=== PATIENT | female | born 1960 | race Caucasian/White ===

== ENCOUNTER 2019-08-05 05:50 | Inpatient (IN) | payer BC ==
[~2019-08-05] VITALS: Ht 160 cm; Wt 77.1 kg
[2019-08-05] MEDS ORDERED: ALVIMOPAN 12 MG CAPSULE PO ONE ×2 (06:34→07:00)
[2019-08-05] MEDS ORDERED: TOPXL100 PO (06:41)
[2019-08-05] MEDS ORDERED: NOR10 PO (06:41)
[2019-08-05] MEDS ORDERED: cefOXitin 2 GM IVPB PREMIX 50 ML IV ONE (07:00)
[2019-08-05] MEDS ORDERED: METOCLOPRAMIDE HCL 10 MG/2 ML VIAL IVP ONE (07:10)
[2019-08-05] MEDS ORDERED: DEXAMETHASONE SOD PHOSPHATE 4 MG/ML VIAL IVP ONE (07:10)
[2019-08-05] MEDS ORDERED: LR 1,000 ML IV.SOLN IV ONE (07:10)
[2019-08-05] MEDS ORDERED: ATROPINE SULFATE 0.4 MG/ML VIAL IVP ONE (07:10)
[2019-08-05] MEDS ORDERED: fentaNYL CITRATE/PF 100 MCG/2 ML AMP IVP ONE (07:10)
[2019-08-05] MEDS ORDERED: fentaNYL CITRATE 250 MCG/5 ML AMP IV ONE (07:10)
[2019-08-05] MEDS ORDERED: GLUCAGON,HUMAN RECOMBINANT 1 MG VIAL IV ONE (07:10)
[2019-08-05] MEDS ORDERED: KETOROLAC TROMETHAMINE 30 MG VIAL IVP ONE (07:10)
[2019-08-05] MEDS ORDERED: PROPOFOL 200MG/ 20ML VIAL (DIPRIVAN) IV ONE (07:10)
[2019-08-05] MEDS ORDERED: NS 1000 ML IV.SOLN IV ONE (07:10)
[2019-08-05] MEDS ORDERED: ONDANSETRON HCL 4 MG/2 ML VIAL IVP ONE (07:10)
[2019-08-05] MEDS ORDERED: ROCURONIUM BROMIDE 10 MG/ML (ZEMURON) IV ONE (07:10)
[2019-08-05] MEDS ORDERED: SEVOFLURANE 15 MIN GAS INH ONE (07:10)
[2019-08-05] MEDS ORDERED: MIDAZOLAM HCL 5 MG/5 ML VIAL IVP ONE (07:10)
[2019-08-05] MEDS ORDERED: LR 1,000 ML IV SCH (08:33)
[2019-08-05] MEDS ORDERED: MEPERIDINE HCL/PF 25 MG/ML DISP.SYRIN IVP PRN (08:45)
[2019-08-05] MEDS ORDERED: HYDROmorphone 2 MG/ML VIAL IVP PRN ×2 (08:45)
[2019-08-05] MEDS ORDERED: HYDROmorphone 1 MG INJ. 1 MG/ML AMPUL IVP PRN ×2 (08:45→11:45)
[2019-08-05] MEDS ORDERED: BUPIVACAINE LIPOSOME/PF 266 MG/20 ML VIAL INFIL ONE (10:10)
[2019-08-05 11:06] LABS: HEMATOCRIT 36.6 % (36-48); HEMOGLOBIN 12.2 g/dL (12.0-16.0)
[2019-08-05] MEDS ORDERED: HYDROmorphone 1 MG INJ. 1 MG/ML AMPUL ONE ×2 (11:21→11:54)
[2019-08-05 11:23] LABS: CALCIUM 8.2 mg/dL (8.4-11.0); CREATININE 0.66 mg/dL (0.55-1.30); POTASSIUM 3.2 mmol/L (3.5-5.1)
[2019-08-05] MEDS ORDERED: ONDANSETRON HCL 4 MG/2 ML VIAL IVP PRN (11:45)
[2019-08-05] MEDS ORDERED: HYDROcodone/ACETAMIN 5-325 MG TAB (NORCO/ VICODIN) PO PRN ×2 (11:45)
[2019-08-05] MEDS ORDERED: ACETAMINOPHEN 325 MG TABLET PO PRN (11:45)
[2019-08-05 12:00] VITALS: BP_SYST 117
[2019-08-05 15:10] VITALS: BP_SYST 117
[2019-08-05] MEDS: D5/0.45 NS 1,000 ML IV SCH ×2 (16:19→21:45)
[2019-08-05 16:29] VITALS: BP_SYST 126
[2019-08-05 20:00] VITALS: BP_SYST 133
[2019-08-05 20:16] VITALS: BP_SYST 133
[2019-08-05] MEDS: FAMOTIDINE PF 20 MG/2 ML VIAL IVP SCH (21:05)
[2019-08-05] MEDS: cefOXitin SODIUM 2 GM in D5W 100 ML IV SCH (21:05)
[2019-08-05] MEDS: ALVIMOPAN 12 MG CAPSULE PO SCH (21:05)
[2019-08-06 00:28] VITALS: BP_SYST 126
[2019-08-06] MEDS: D5/0.45 NS 1,000 ML IV SCH (02:18)
[2019-08-06 07:36] LABS: HEMATOCRIT 34.3 % (36-48); HEMOGLOBIN 11.6 g/dL (12.0-16.0); LYMPHOCYTES # (AUTO) 1.5 K/uL (1.0-5.5); LYMPHOCYTES % (AUTO) 11.3 % (20.5-51.5); MEAN CORPUSCULAR HEMOGLOBIN 30 pg (27-31); MEAN CORPUSCULAR HGB CONC 34 % (32-36); MEAN CORPUSCULAR VOLUME 89 fL (79.0-98.0); MONOCYTES # (AUTO) 1.2 K/uL (0.0-1.0); MONOCYTES % (AUTO) 9.3 % (1.7-9.3); NEUTROPHILS # (AUTO) 10.5 K/uL (1.8-7.7); NEUTROPHILS % (AUTO) 79.4 % (40.0-70.0); PLATELET COUNT (AUTO) 268 K/uL (130-430); RED BLOOD CELL COUNT(AUTO) 3.86 MIL/uL (4.2-6.2); WHITE BLOOD COUNT (AUTO) 13.2 K/uL (4.8-10.8)
[2019-08-06 08:07] LABS: ALBUMIN 3.5 g/dL (3.4-4.8); CALCIUM 8.9 mg/dL (8.4-11.0); CREATININE 0.54 mg/dL (0.55-1.30); POTASSIUM 3.5 mmol/L (3.5-5.1); TOTAL BILIRUBIN 0.4 mg/dL (0.0-1.0)
[2019-08-06 08:30] VITALS: BP_SYST 140
[2019-08-06] MEDS: FAMOTIDINE PF 20 MG/2 ML VIAL IVP SCH ×2 (09:00→21:28)
[2019-08-06] MEDS: ENOXAPARIN SODIUM 30 MG/0.3 ML SYRINGE SUBCUT SCH (09:02)
[2019-08-06] MEDS ORDERED: amLODIPine BESYLATE 10 MG TABLET PO ONE (09:45)
[2019-08-06] MEDS ORDERED: METOPROLOL SUCCINATE 50 MG TAB.SR.24H (TOPROL XL) PO ONE (09:45)
[2019-08-06 12:00] VITALS: BP_SYST 121
[2019-08-06] MEDS: ALVIMOPAN 12 MG CAPSULE PO SCH ×2 (15:21→15:31)
[2019-08-06] MEDS: cefOXitin SODIUM 2 GM in D5W 100 ML IV SCH (15:25)
[2019-08-06] MEDS: KCL 20 mEq in D5NS 1000 mL 1,000 ML IV SCH (15:42)
[2019-08-06 16:45] VITALS: BP_SYST 133
[2019-08-06 21:25] VITALS: BP_SYST 125
[2019-08-07 00:29] VITALS: BP_SYST 122
[2019-08-07] MEDS: KCL 20 mEq in D5NS 1000 mL 1,000 ML IV SCH ×2 (02:35→12:06)
[2019-08-07 08:00] VITALS: BP_SYST 122
[2019-08-07] MEDS: FAMOTIDINE PF 20 MG/2 ML VIAL IVP SCH (08:46)
[2019-08-07] MEDS: ALVIMOPAN 12 MG CAPSULE PO SCH (08:47)
[2019-08-07] MEDS: ENOXAPARIN SODIUM 30 MG/0.3 ML SYRINGE SUBCUT SCH (08:50)
[2019-08-07] MEDS ORDERED: amLODIPine BESYLATE 10 MG TABLET PO SCH (09:00)
[2019-08-07] MEDS ORDERED: METOPROLOL SUCCINATE 50 MG TAB.SR.24H (TOPROL XL) PO SCH (09:00)
[2019-08-07 12:30] VITALS: BP_SYST 126
[2019-08-07 14:40] VITALS: BP_SYST 122
== END 2019-08-07 15:10 | disposition home or self-care (01) | DRG 392 ==
LOC: SMU 05:50 → EDSTATUS 08:50 → SMU 08:53
PROVIDERS: ADMIT Colon & Rectal Surgery; ATTEND Colon & Rectal Surgery
PROC: 3E0T3BZ Introduction of Anesthetic Agent into Peripheral Nerves and Plexi, Percutaneous Approach (ICD-10-PCS; 2019-08-05)
PROC: 0DBN8ZZ Excision of Sigmoid Colon, Via Natural or Artificial Opening Endoscopic (ICD-10-PCS; principal; 2019-08-05 07:30)
DX: K57.32 Diverticulitis of large intestine without perforation or abscess without bleeding (principal); K66.0 Peritoneal adhesions (postprocedural) (postinfection); E11.9 Type 2 diabetes mellitus without complications; I10 Essential (primary) hypertension
CPT/HCPCS: 36415; 80048; 80053; 85018-TC; 85025; 86886; 86900; 86901; 87081; 88307; 94010; 94760; C1727; C9290; J0461; J0694; J1100; J1170; J1610; J1650; J1885; J2250; J2405; J2704; J2765; J3010; J3490; J7030; J7060; J7120